=== PATIENT | female | born 1940 | race Caucasian/White ===

== ENCOUNTER 2017-02-08 13:44 | Emergency (ER) | payer MEDICARE, OTHER ==
--- NOTE | 2017-02-08 14:44 | ER PHYSICIAN DOCUMENTATION ---
Physician Documentation [facility] Name:Yasmin Chicas Age:76 yrs Sex:Female :1940 Arrival Date:02/08/2017 Time:13:44 Bed1 Private MD:Valerio Chaney ED, Scott Disposition: 02/08/17 14:34 Discharged to Home/Self Care. Impression: Dental Abscess w/ Facial Cellulitis. - Condition is Good. - Discharge Instructions: DENTAL ABSCESS w/ Facial Cellulitis. - Prescriptions for Clindamycin HCl 300 mg Oral Capsule - take 1 capsule by ORAL route every 6 hours for 10 days; 40 capsule. - Medical Reconciliation form form. - Follow up: [facility]; When: 4- 6 days; Reason: Continuance of care. Follow up: Private, Dentist; When: 4- 6 days; Reason: Continuance of care. - Problem is new. - Symptoms are unchanged. HPI: 02/08 14:31 This 76 yrs old Female presents to ER via Private Vehicle with complaints of sc Jaw Pain. 14:31 The patient presents with pain, that is acute, swelling. The problem is located in the sc lower left first molar. Onset: The symptom(s)/episode began/occurred 2 week(s) ago, and became worse yesterday. Duration: The symptoms are continuous. Associated signs and symptoms: The patient has no apparent associated signs or symptoms. Historical: - Allergies: No known drug Allergies; - Home Meds: 1. amlodipine oral 2. Lisinopril Oral 3. Toprol XL Oral 4. Simvastatin Oral 5. Metformin Oral 6. Januvia oral 7. Nexium Oral 8. gabapentin oral 9. Glucosamine oral 10. Ryann Oral 11. aspirin 81 mg oral tab 1 tab once daily 12. cranberry oral 13. eye promise vitiman - PMHx: DIABETES - NIDDM; HYPERTENSION; GERD; neuropathic pain; - PSHx: HYSTERECTOMY; feet; KNEE SURGERY; - Tetanus: > 10 years will f/u with PCP. - Ebola Screening: : Patient denies exposure to infectious person. Patient denies travel to an Ebola-affected area in the 21 days before illness onset. . - Social history: Smoking status: Patient states was never smoker of tobacco. Patient/guardian denies using alcohol, marijuana. ROS: 14:32 Constitutional: Negative for fever, chills, and weight loss. sc Eyes: Negative for injury, pain, redness, and discharge. Neck: Negative for injury, pain, and swelling. Cardiovascular: Negative for chest pain, palpitations, and edema. Back: Negative for injury and pain. Skin: Negative for injury, rash, and discoloration. 14:32 Neuro: Negative for headache, weakness, numbness, tingling, and seizure. sc 14:32 ENT: Positive for dental pain. Exam: Constitutional: This is a well developed, well nourished patient who is awake, alert, and in no acute distress. Head/Face: Normocephalic, atraumatic. Eyes: Pupils equal round and reactive to light, extra-ocular motions intact. Lids and lashes normal. Conjunctiva and sclera are non-icteric and not injected. Cornea within normal limits. Periorbital areas with no swelling, redness, or edema. Neck: Trachea midline, no thyromegaly or masses palpated, and no cervical lymphadenopathy. Supple, full range of motion without nuchal rigidity, or vertebral point tenderness. No meningismus. Chest/axilla: Normal chest wall appearance and motion. Nontender with no deformity. No lesions are appreciated. Back: No spinal tenderness. No costovertebral tenderness. Full range of motion. 14:32 Skin: Warm, dry with normal turgor. Normal color with no rashes, no lesions, and no sc evidence of cellulitis. 14:32 ENT: Mouth: no acute changes, Oral mucosa: pink and intact, moist, Dental exam: cellulitis, that is moderate, pain, that is moderate, specifically in the lower left first molar. Vital Signs: 13:49 BP 175 / 80; Pulse 115; Resp 20; Temp 98.5(O); Pulse Ox 89% on R/A; Weight 73.[address] (R); Height 5 ft. 4 in. (162.56 cm) (R); Pain 5/10; 13:49 Body Mass Index 27.81 (73.48 kg, 162.56 cm) st 13:49 pt has not had her BP meds today. st MDM: 14:22 Patient medically screened. sc 14:33 Differential diagnosis: dental abscess. Data reviewed: vital signs, nurses notes, and sc as a result, I will discharge patient. Counseling: I had a detailed discussion with the patient and/or guardian regarding: the historical points, exam findings, and any diagnostic results supporting the discharge/admit diagnosis, the need for outpatient follow up, for a referral to a specialist. Dispensed Medications: No medications were administered Signatures: Bette Hendrickson RN Adarsh Roberson MD MD sc
--- NOTE | 2017-02-08 14:44 | ER NURSING DOCUMENTATION ---
Nurse's Notes [facility] Name:Yasmin Chicas Age:76 yrs Sex:Female :1940 Arrival Date:02/08/2017 Time:13:44 Bed1 Private MD:Valerio Chaney Diagnosis:Dental Abscess w/ Facial Cellulitis Presentation: 02/08 13:54 Presenting complaint: Patient states: pt started having dental pain 4 [address] started to have a fever, sinus pain and a sore throat. Then This AM she had left facial swelling. Transition of care: Home. Notified ED Physician of Dr. Wheeler notified. 13:54 Acuity: MENDEL 3 st 13:54 Method Of Arrival: Private Vehicle st Triage Assessment: 14:04 General: Appears uncomfortable, Behavior is cooperative. Pain: Complains of pain in st lower left first molar, lower left second bicuspid and left jaw Pain currently is 6 out of 10 on a pain scale. Pain began 2-3 days ago. EENT: Oral mucosa is dry. swelling of gums on the left lower jaw. Throat is pink pt has no troubles with vocalization or managing secretions. . Cardiovascular: tachy. Reports lightheadedness. Respiratory: No deficits noted. GI: No deficits noted. Derm: Skin temperature is pt feels warm to the touch but does not register a fever by oral thermometer. Musculoskeletal: Swelling present in left jaw other soft w=swelling palpated on the left jaw. Historical: - Allergies: No known drug Allergies; - Home Meds: 1. amlodipine oral 2. Lisinopril Oral 3. Toprol XL Oral 4. Simvastatin Oral 5. Metformin Oral 6. Januvia oral 7. Nexium Oral 8. gabapentin oral 9. Glucosamine oral 10. Ryann Oral 11. aspirin 81 mg oral tab 1 tab once daily 12. cranberry oral 13. eye promise vitiman - PMHx: DIABETES - NIDDM; HYPERTENSION; GERD; neuropathic pain; - PSHx: HYSTERECTOMY; feet; KNEE SURGERY; - Tetanus: > 10 years will f/u with PCP. - Ebola Screening: : Patient denies exposure to infectious person. Patient denies travel to an Ebola-affected area in the 21 days before illness onset. . - Social history: Smoking status: Patient states was never smoker of tobacco. Patient/guardian denies using alcohol, marijuana. Screenin:07 Infectious Disease Risk None. Abuse screen: Denies threats or abuse. Denies injuries st from another. pt feels safe at home. Nutritional screening: No deficits noted. Assessment: 14:07 General: other family members have be sick.. st Vital Signs: 13:49 BP 175 / 80; Pulse 115; Resp 20; Temp 98.5(O); Pulse Ox 89% on R/A; Weight 73.[address] (R); Height 5 ft. 4 in. (162.56 cm) (R); Pain 5/10; 13:49 Body Mass Index 27.81 (73.48 kg, 162.56 cm) st 13:49 pt has not had her BP meds today. ED Course: 13:46 Patient arrived in ED. arc 13:46 Valerio Chaney MD is Private Physician. arc 13:54 Bette Hendrickson RN is Primary Nurse. st 13:[address] 14:05 Adarsh Wheeler MD is Attending Physician. md 14:08 Valuables Remains with patient Patient has correct armband on for positive st identification. Bed in low position. 14:33 [facility] is Referral Physician. md 14:33 Private, Dentist is Referral Physician. md Administered Medications: No medications were administered Outcome: 14:34 Discharge ordered by . md 14:43 Discharged to home via wheelchair. st 14:43 Condition: stable 14:43 Discharge instructions given to patient, family, Instructed on discharge instructions, follow up and referral plans. medication usage, Prescriptions given X 1. 14:44 [address] the ED. st 05 16:57 Discharge F/U Call: Spoke with: patient. Have you filled your prescriptions? yes. lc Overall Care on a scale of 1-10 with 10 being the best care, you rate our care as: Other comments: FEELING BETTER WITH ABX, WILL GET APPT WITH DENTIST THIS WEEK Signatures: Bette Hendrickson RN RN st Coleman, Linda, RN RN lc Chew, Scott, MD MD md Minda Wheeler, Reg Reg arc
== END 2017-02-08 14:44 | disposition home or self-care (01) ==
LOC: ER 13:44
DX: K04.6 Periapical abscess with sinus (principal); L03.211 Cellulitis of face; K08.89 Other specified disorders of teeth and supporting structures; R50.9 Fever, unspecified; I10 Essential (primary) hypertension; E11.9 Type 2 diabetes mellitus without complications; Z79.899 Other long term (current) drug therapy; Z79.82 Long term (current) use of aspirin
CPT/HCPCS: 99282